=== PATIENT | female | born 1975 | race Caucasian/White ===

== ENCOUNTER 2023-05-24 09:34 | Day surgery (SDC) | payer MEDICAID ==
[2023-05-20 10:01] VITALS: BMI 27.9
[~2023-05-24 09:34] MED LIST: LACTATED RINGERS 1,000 ML IV SCH; LIDOCAINE 1% (10MG/ML) FOR IV START INTRADERMA PRN
[2023-05-24] MEDS ORDERED: ONDANSETRON 4 MG/2 ML VIAL ONE (10:14)
[2023-05-24 10:36] VITALS: TEMP 97.6
[2023-05-24] MEDS ORDERED: PROPOFOL 10 MG/ML 20 ML VIAL IV ONE (11:29)
--- NOTE | 2023-05-24 11:48 | P.PCN ---
Date of Procedure: 05/24/23 Procedure(s) Performed: BRIEF HISTORY: Patient is a 48-year-old pleasant white female scheduled for an elective colonoscopy as a part of screening for colon cancer. PROCEDURE PERFORMED: Colonoscopy with snare polypectomy. PREOPERATIVE DIAGNOSIS: Screening for colon cancer. IV sedation per Anesthesia. PROCEDURE: After informed consent was obtained, the patient, was brought into the endoscopy unit. IV sedation was administered by Anesthesia under continuous monitoring. Digital rectal examination was normal. Initially the Olympus CF-160 flexible video colonoscope was then inserted in the rectum, gradually advanced into the cecum without any difficulty. Careful examination was performed as the scope was gradually being withdrawn. Ileocecal valve and the appendiceal orifice were visualized and appeared normal. Prep was excellent. Mucosa of the cecum had an 8 mm linear cecal polyp that was removed by cold snare polypectomy. Rest of the, ascending colon, transverse colon, descending colon, sigmoid colon, and rectum appeared normal. Retroflexion was performed in the rectum and no lesions were seen. The patient tolerated the procedure well. IMPRESSION: 8 mm sessile linear cecal polyp status post polypectomy Rest of the colon appeared normal RECOMMENDATIONS: Findings of this examination were discussed with the patient as well as her family. She was advised to follow with the biopsy result. If the biopsy result adenoma she can have a repeat colonoscopy in 5 years.
[2023-05-24 11:55] VITALS: RESP 16
[2023-05-24 12:20] VITALS: BP 119/65; PULSE 66
== END 2023-05-24 12:32 | disposition home or self-care (01) ==
LOC: ORWHC2ENDO 09:34
PROVIDERS: ATTEND Internal Medicine Gastroenterology
DX: Z12.11 Encounter for screening for malignant neoplasm of colon (principal); D12.0 Benign neoplasm of cecum; I10 Essential (primary) hypertension; F32.A Depression, unspecified; Z79.899 Other long term (current) drug therapy
CPT/HCPCS: 81025; 88305; 45385; J2405; J2704

== ENCOUNTER → 2024-02-23 | Outpatient (CLI) | payer MEDICAID | END | disposition home or self-care (01) | LOC: LABPRL 12:00 | PROVIDERS: ATTEND Nurse Practitioner Family | DX: Z13.220 Encounter for screening for lipoid disorders (principal); F33.0 Major depressive disorder, recurrent, mild; I10 Essential (primary) hypertension | CPT/HCPCS: 80053; 80061; 84443; 85025 ==